=== PATIENT | male | born 1975 | race American Indian/Alaskan Native ===

== ENCOUNTER 2018-10-11 21:51 | Emergency (ER) | payer OTHER ==
[~2018-10-11] VITALS: Ht 180.3 cm; Wt 65.8 kg
== END 2018-10-11 23:40 | disposition home or self-care (01) ==
LOC: ED 21:51
PROC: 0HQ1XZZ Repair Face Skin, External Approach (ICD-10-PCS; principal; 2018-10-11)
DX: S01.111A Laceration without foreign body of right eyelid and periocular area, initial encounter (principal); S01.81XA Laceration without foreign body of other part of head, initial encounter; F17.200 Nicotine dependence, unspecified, uncomplicated; Y04.0XXA Assault by unarmed brawl or fight, initial encounter
CPT/HCPCS: 12002; 70450; 70486; 99283-25

== ENCOUNTER 2019-07-31 18:51 | Emergency (ER) | payer SELFPAY ==
[~2019-07-31] VITALS: Ht 180.3 cm; Wt 65.8 kg
== END 2019-07-31 19:40 | disposition home or self-care (01) ==
LOC: ED 18:51
DX: F15.10 Other stimulant abuse, uncomplicated (principal); F17.200 Nicotine dependence, unspecified, uncomplicated
CPT/HCPCS: 99282

== ENCOUNTER 2019-08-03 17:56 | Inpatient (IN) | payer SELFPAY ==
[~2019-08-03] VITALS: Ht 180.3 cm; Wt 83.9 kg
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
--- NOTE | 2019-08-03 23:00 | NUR ---
BEDSIDE REPORT RECIEVED FROM LAYOUT ARTIST. CARE OF PATIENT ASSUMED AT THIS TIME. PT TRANSPORTED TO CCU VIA STRETCHER BY THIS RN. UPON ARRIVAL PT OPENS EYES TO VOICE, DOES NOT OBEY COMMANDS, AND IS RESISTANT TO CARES. PT HAD INCONTINENT EPISODE ON ARRIVAL. INCONTIENT CARE AND BED CHANGE COMPLETED.
--- NOTE | 2019-08-03 23:54 | NUR ---
PT GIVEN 2 MG OF ATIVAN FOR AGITATION. PT PULLING AT IV AND CORDS. RESISTENT TO CARES.
--- NOTE | 2019-08-04 00:18 | NUR ---
ANOTHER LARGE INCONTINENT EPISODE. COMPLETE BED CHANGE REQUIRED.
--- NOTE | 2019-08-04 00:24 | NUR ---
PT CONTINUES TO PULL AT LINES. ONE ON ONE SUPERVISION NEEDED FOR PATIENT SAFETY AT THIS TIME.
--- NOTE | 2019-08-04 01:04 | NUR ---
PT CALLING OUT GARBLED WORDS AND PICKING AT THE AIR AND LINES. PRN IV ATIVAN ADMINISTERED (SEE EMAR).
--- NOTE | 2019-08-04 01:50 | NUR ---
PT MOANING. BED SATURATED WITH URINE LARGE AMOUNT OF URINE AGAIN. DR KAUR NOTIFIED. ORDERS RECIEVED. PT GRABBING AT AIR AND MOANING DURING COMPLETE BED CHANGE.
--- NOTE | 2019-08-04 02:15 | NUR ---
LAB IN FOR BLOOD DRAW
--- NOTE | 2019-08-04 02:45 | NUR ---
PT APPEARS MORE RESTFUL. BREATHING EVEN AND UNLABORED R=22. WILL CONTINUE TO MONITOR.
--- NOTE | 2019-08-04 03:00 | NUR ---
LABS BACK. DR KAUR CALLED AND UPDATED. ORDERS RECEIVED (SEE EMAR).
--- NOTE | 2019-08-04 04:00 | NUR ---
PT ASSESSMENT COMPLETED AT THIS TIME. PT HAD AN INCONTINENT EPISODE, CONDOM CATH DID NOT REMAIN IN PLACE. LARGE AMOUNT OF URINE. BED CHANGE REQUIRED. PT GRASPS AT LINES AND AT THE AIR DURING BED CHANGE BUT DOES NOT RESPOND TO VOICE BUT RESPONDS TO PAINFUL STIMULI.
--- NOTE | 2019-08-04 05:55 | NUR ---
PT MOVING SELF FROM RIGHT SIDE TO LEFT SIDE. GRABBING AND PULLING LINES LESS FREQUENTLY. LAB IN TO DRAW BLOOD AT THIS TIME.
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
--- NOTE | 2019-08-04 07:34 | EKG ---
[facility] [address] [facility] [place], [place] [address] Signed Sinus rhythm with occasional premature ventricular complexes Left axis deviation Cannot rule out Inferior infarct , age undetermined Prolonged QT Abnormal ECG No previous ECGs available Confirmed by DAMIAN KAUR MD ([id number]) on 08/04/2019 7:34:18 AM Electronically Signed By: DAMIAN KAUR MD 08/04/19 0734 PATIENT NAME: JACQUELINE TEJEDA [place] Electrocardiogram DATE OF : 75 PHYSICIAN: DAMIAN KAUR MD REPORT #: [id number] REPORT IS CONFIDENTIAL AND NOT TO BE RELEASED WITHOUT AUTHORIZATION
--- NOTE | 2019-08-04 08:21 | NUR ---
KCL [address] ME[address]G PER ORDERS. DR. KAUR HERE TO SEE PATIENT, ORDERS RECIEVED.
--- NOTE | 2019-08-04 08:39 | NUR ---
FAMILY MEMBER IN ROOM. PATIENT IS SLEEPING.
--- NOTE | 2019-08-04 09:50 | NUR ---
PULLED OFF CONDOM CATH, VOIDED 120 ML OF CLEAR YELLOW URINE TO URINAL. WILL LEAVE CONDOM CATH OFF FOR NOW.
--- NOTE | 2019-08-04 10:59 | NUR ---
HR WITH MOVEMENT UP TO 125. WILL OPEN EYES AT TIMES, WILL MUMBLE AT TIMES.
--- NOTE | 2019-08-04 11:35 | NUR ---
AWAKE, IS FOLLOWING COMMANDS AND SAYING FEW WORDS. ATTEMPTING TO USE URINAL.TWO SECURITY OFFICERS OFFICERS IN ROOM NOW.
--- NOTE | 2019-08-04 12:00 | NUR ---
assessment done. MORE ALERT.
--- NOTE | 2019-08-04 13:50 | NUR ---
VOIDED 500 ML OF CLEAR YELLOW URINE TO URINAL. TALKING, FOLLOWING COMMANDS, ASKING APPOP QUESTIONS. HOB ELEVATED.
--- NOTE | 2019-08-04 14:20 | NUR ---
DR. KAUR AWARE OF LABS, ORDERS RECIEVED TO IVF. THIS DONE. PATIENT IS ASLEEP. NO DISTRESS NOTED. SECURITY OFFICERS IN ROOM.
--- NOTE | 2019-08-04 14:33 | NUR ---
PT IS UNDER CUSTODY-NO VISITORS ALLOWED
--- NOTE | 2019-08-04 16:00 | NUR ---
ASSESSMENT DONE, IS VERY SLEEPY. DENEIS PAIN, SIPS OF WATER GIVEN. IS COOPERATIVE.
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
--- NOTE | 2019-08-04 18:54 | NUR ---
TOOK DINNER WELL, DENEIS PAIN. NO CHANGES, COOPERATIVE.
--- NOTE | 2019-08-04 19:20 | NUR ---
REPORT RECEIVED. PT LYING ON BACK, NAD. GUARDS X 2 IN ROOM.
--- NOTE | 2019-08-04 20:16 | NUR ---
ASSESSMENT COMPLETE. PT SLEEPY, ORIENTED X 3. ABLE TO FOLLOW COMMANDS. VOID 600 ML YELLOW URINE. VS COMPLETE. NO QUESTIONS OR CONCERNS AT THIS TIME. CALL LIGHT IN REACH.
--- NOTE | 2019-08-04 21:30 | NUR ---
NICOTINE PATCH REMOVED. PT RESTING WITH EYES CLOSED, WAKENS WHEN SPOKEN TO. SIPS OF WATER GIVEN.
--- NOTE | 2019-08-04 22:48 | NUR ---
PT REPOSITIONED IN BED, ABLE TO FOLLOW COMMANDS AND ASSIST. FRESH ICE WATER GIVEN.
--- NOTE | 2019-08-04 23:13 | NUR ---
LAB RESULTS IN, DR. KAUR UPDATED. NO NEW ORDERS.
--- NOTE | 2019-08-05 00:30 | NUR ---
CALL LIGHT AND BED ALARM SOUNDING. PT AWAKE, "I NEED TO GO TO THE BATHROOM RIGHT NOW". PT VOID 300 ML CL YELLOW URINE IN URINAL. WASHCLOTH PROVIDED FOR HANDS. PT STILL UNABLE TO REMEBER THE EVENTS THAT LED TO ADMISSION. DENIES PAIN. SOUP AND SANDWICH ORDERED. ASSESSMENT COMPLETE. GUARDS X 2 REMAIN IN ROOM.
--- NOTE | 2019-08-05 01:08 | NUR ---
PT ATE 60% OF SOUP AND SANDWICH. NOW RESTING WITH EYES CLOSED, RR EVEN AND UNLABORED.
--- NOTE | 2019-08-05 03:07 | NUR ---
PT RESTING IN BED WITH EYES CLOSED, NAD. HR 90'S, RR EVEN AND UNLABORED. CALL LIGHT IN REACH.
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
--- NOTE | 2019-08-05 06:35 | NUR ---
PT RESTING IN BED ON HIS BACK, SNORING SOFTLY. FRESH ICE WATER GIVEN.
--- NOTE | 2019-08-05 07:30 | NUR ---
REPORT RECIEVED. PATIENT IN BED, NO DISTRESS NOTED. OFFICERS IN ROOM.
--- NOTE | 2019-08-05 09:07 | NUR ---
SLEEPING. NO DISTRESS NOTED.
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
--- NOTE | 2019-08-05 10:15 | NUR ---
PATIENT REMAINS VERY SOMULENT. DR. KAUR UPDATED ON PATIENT AND IS AWARE OF HOW TIRED PATIENT REMAINS. NO FUTHER ORDERS.
--- NOTE | 2019-08-05 10:45 | NUR ---
AWAKE, UP TO BR TO VOID AND BM, IS SOMEWHAT UNSTEADY ON FEET. HR TO 110 FROM 80'S WITH EXERTION. WILL ANSWERE MOST QUESTIONS.
--- NOTE | 2019-08-05 11:00 | NUR ---
WOLOF TOAST WARMED UP AND GIVEN TO PATIENT. PATIENT IS SITTING UP IN BED AT 80 DEGREEE ANGLE. UPON TAKING FIRST BITE OF FOOD, HAD SEVERE COUGHING EPISODE. FOOD REMOVED FROM ROOM. PATIENT STATED THIS USUALLY DOESN'T HAPPEN. IS COOPARATIVE AT THIS TIME. OFFICERS X 2 IN ROOM. PATIENT W/O QUESTIONS OR REQUESTS.
--- NOTE | 2019-08-05 11:10 | NUR ---
CONTINUE TO SIT UP IN BED, TAKING ENSURE DRINK AT THIS TIME. NO CHOKING NOTED.
--- NOTE | 2019-08-05 12:06 | NUR ---
ASSESSMENT COMPLETE. SITTING UP IN BED FOR LUNCH. NO CHOKING NOTED. DENEIS PAINN OF NAUSEA.
--- NOTE | 2019-08-05 12:21 | NUR ---
TOOK LUNCH WELL.
--- NOTE | 2019-08-05 14:00 | NUR ---
BLOOD DRAWN PER ORDERS.
--- NOTE | 2019-08-05 14:30 | NUR ---
WOKE PATIENT FOR SHOWER. AMBULATED TO SHOWER, RN ASSISTING PATIENT WITH SHOWER.
--- NOTE | 2019-08-05 15:00 | NUR ---
TOLERATED SHOWER WELL. AMBULATED BACK TO ROOM. FEELING FATIGUED AFTER SHOWER. IV TO RIGHT HAND IS SOMEWHAT TENDER. 20 GA PLACED TO LEFT FOREARM, IV SITE TO RIGHT HAND DC'D WITH CATH INTACT. COOPERATIVE. FLAT AFFECT.
--- NOTE | 2019-08-05 17:00 | NUR ---
SLEEPING, NO DISTRESS NOTED.
--- NOTE | 2019-08-05 19:34 | NUR ---
HAS BEEN SLEEPING SINCE SHOWER GIVEN. REPORT TO NEXT SHIFT.
--- NOTE | 2019-08-05 19:42 | NUR ---
REPORT RECEIVED FROM DAY SHIFT RN. PT AWAKE, SITTING UP IN BED EATING DINNER. FRESH DRINK PROVIDED. GAURDS IN ROOM. NO FURTHER NEEDS AT THIS TIME.
--- NOTE | 2019-08-05 20:40 | NUR ---
PT ATE 100% OF DINNER MEAL, NO SWALLOWING ISSUES NOTED. PT C/O CRAMP IN LEFT ARM, REFUSED PRN PAIN OR HEAT APPLICATION. BLOOD PRESSURE CUFF REMOVED FROM LEFT ARM. PT SLOW TO RESPOND TO QUESTIONS BUT ANSWERS APPROPRIATELY. WARM BLANKET GIVEN.
--- NOTE | 2019-08-05 23:17 | NUR ---
PT RESTING IN BED ON RIGHT SIDE, NAD. HR IN THE 80'S. RR EVEN AND UNLABORED.
--- NOTE | 2019-08-06 01:12 | NUR ---
ASSESSMENT COMPLETE. VSS. SPRITE GIVEN PER PT REQUEST. NO ADDITIONAL NEEDS AT THIS TIME.
--- NOTE | 2019-08-06 03:22 | NUR ---
PT IN BED RESTING WITH EYES CLOSED. RR EVEN AND UNLABORED. GUARDS IN ROOM.
--- NOTE | 2019-08-06 05:28 | NUR ---
ASSESSMENT COMPLETE. PT AWAKENS EASILY, RESPONDING MORE QUICKLY TO QUESTIONS. DENIES PAIN OR NAUSEA, DENIES CRAMPING IN LEFT ARM. FRESH WATER AND SPRITE GIVEN.
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
--- NOTE | 2019-08-06 09:05 | NUR ---
PATIENT EATING BREAKFAST AT THIS TIME. D/C PAPERWORK COMPLETE.
== END 2019-08-06 09:40 | disposition home or self-care (01) | DRG 640 ==
LOC: ED 17:56 → CCU 22:37
PROVIDERS: ADMIT Internal Medicine
DX: E87.1 Hypo-osmolality and hyponatremia (principal); G93.41 Metabolic encephalopathy; F15.93 Other stimulant use, unspecified with withdrawal; F17.200 Nicotine dependence, unspecified, uncomplicated; R82.5 Elevated urine levels of drugs, medicaments and biological substances
CPT/HCPCS: 36415; 51701; 70450; 80048; 80053; 83735; 83930; 83935; 84300; 85025; 93005; 93010; 99285-25; 99406; G0480; J2060; J3480; J7030; J7060

== ENCOUNTER 2022-01-31 19:41 | Emergency (ER) | payer OTHER ==
[~2022-01-31] VITALS: Ht 180.3 cm; Wt 83.5 kg
== END 2022-01-31 20:42 | disposition home or self-care (01) ==
LOC: ED 19:41
DX: S80.212A Abrasion, left knee, initial encounter (principal); S80.211A Abrasion, right knee, initial encounter; S40.212A Abrasion of left shoulder, initial encounter; S00.01XA Abrasion of scalp, initial encounter; M25.532 Pain in left wrist; M25.531 Pain in right wrist; Z02.89 Encounter for other administrative examinations; F17.200 Nicotine dependence, unspecified, uncomplicated; Z23 Encounter for immunization; Y09 Assault by unspecified means
CPT/HCPCS: 73030; 90471; 90715; 99283-25